=== PATIENT | male | born 1945 | race Asian ===

== ENCOUNTER → 2021-01-24 15:26 | Outpatient (CLI) | payer MEDICARE, SELFPAY ==
[2021-01-14 16:09] VITALS: BMI 21.2
--- NOTE | 2021-01-24 15:29 | CT_ITS ---
STUDY: CT CHEST, ABDOMEN T PELVIS WITH CONTRAST REASON FOR EXAM: Male, 75 years old. HYPERFERRITINEMIA RADIATION DOSAGE (If Supplied By Facility): CTDIvol = ( 25.32 ) mGy, DLP = ( 566.66 ) mGycm TECHNIQUE: Transaxial imaging was performed following intravenous administration of Oral and amp; IV Readi-CAT and amp; 100mL Isovue-300. Individualized dose optimization techniques were used for this CT. COMPARISON: No relevant priors. FINDINGS: CHEST Examination is technically suboptimal due to motion artifact. Interstitium appears indistinct. Diagnostic information is available. Lungs are clear with mild apical pleural parenchymal scarring. Airways are patent. Mediastinal contents are normal. ABDOMEN Examination is mildly technically degraded due to respiratory motion artifact. Bowel wall is indistinct and cannot be reliably evaluated. Diagnostic information is available. The liver is normal. There is no biliary dilation. Gallbladder is normal. Adrenals and pancreas are normal. Spleen is mildly/moderately enlarged. Right kidney contains benign cysts which do not require follow-up imaging. Left kidney contains an intraparenchymal 1.1 cm intermediate density lesion, not completely characterized on a single phase exam. There are no stones or hydronephrosis. There is no intestinal obstruction. Appendix is normal. There is a heterogeneously enhancing nodule at the base of the bladder possibly arising from the prostate gland and extending superiorly. Perivesical space is normal. There are no osseous destructive lesions. There is chronic compressive deformity of L2 with mild anterior wedging. CT/CT Chest, Abd, Pel w/Contrast IMPRESSION: 1. Normal chest. 2. Splenomegaly. 3. Low risk 1.1 cm left renal lesion. Refer to confirmatory ultrasonography for further characterization. Most probable diagnosis is cyst. 4. Base of bladder enhancing nodule, possibly prostate related. Urology referral advised. Electronically Signed: Linda Ramirez MD at 16:56 EDT Tel , Service support ,
== END ==
PROVIDERS: PCP Family Medicine; Referring Provider Internal Medicine Medical Oncology; Visit Provider Internal Medicine Medical Oncology
DX: N40.1 Benign prostatic hyperplasia with lower urinary tract symptoms (principal); R31.9 Hematuria, unspecified; R79.89 Other specified abnormal findings of blood chemistry
CPT/HCPCS: 71260; 74177; 82274; Q9967

== ENCOUNTER → 2022-03-10 | Outpatient (CLI) | payer MEDICARE, SELFPAY ==
[2022-03-10 17:20] LABS: PSA,Total - Annual Screen 1.26 ng/mL (0.00-4.00)
== END | disposition home or self-care (01) ==
LOC: LAB 16:35
PROVIDERS: PCP Family Medicine; Referring Provider Urology; Visit Provider Urology
DX: Z12.5 Encounter for screening for malignant neoplasm of prostate (principal)
CPT/HCPCS: 36415; 84153; G0103

== ENCOUNTER → 2023-04-03 | Outpatient (CLI) | payer MEDICARE, SELFPAY ==
[2023-04-03 08:46] LABS: Absolute Lymphocyte Count 1.59 X10^3/uL (0.83-4.51); Absolute Neutrophil Count 3.3 X10^3/uL (2.0-7.7); Basophil# 0.03 X10^3/uL; Basophil% 0.4 % (0-1); Eosinophil# 1.34 X10^3/uL; Eosinophils% 19.9 % (0-5); Hematocrit 27.1 % (40-54); Hemoglobin 7.8 g/dL (13.0-16.5); Immature Platelet Fraction 5.2 % (1.0-7.9); Lymphocyte # 1.59 X10^3/ul (0.83-4.51); Lymphocyte % 23.6 % (19-41); Mean Corp Hgb Conc 28.8 g/dL (32-36); Mean Corpuscular Hgb 18.4 pg (27.0-32.0); Mean Corpuscular Volume 64.1 fL (80-94); Monocyte# 0.51 X10^3/uL; Monocyte% 7.6 % (0-10); NRBC Flagged by Analyzer 0 % (0-5); Neutrophil # 3.25 X10^3/uL (2.7-7.7); Neutrophil % 48.1 % (47-70); POSITIVE MORPHOLOGY YES; Platelet Count 154 K/mm3 (150-450); RBC Distribution Width CV 25.2 % (11.6-14.6); Red Blood Count 4.23 M/mm3 (4.6-6.2); White Blood Count 6.8 K/mm3 (4.4-11.0)
[2023-04-03 09:16] LABS: Reticulocyte Count 1.82 % (0.5-1.5)
[2023-04-03 09:17] LABS: Differential Indicated SCAN CRITERIA MET; RET-HE 18.2 pg (30-35)
[2023-04-03 09:21] LABS: AST(SGOT) 20 U/L (15-37); Alanine Aminotransfer ALT/SGPT 16 U/L (16-61); Albumin, Serum 3.8 g/dL (3.2-5.0); Alkaline Phosphatase 162 U/L (45-117); Anion Gap 4 (5-15); BUN 18 mg/dL (7-18); BUN/Creat Ratio 11.5 RATIO (10-20); Calcium,Total 9.1 mg/dL (8.5-10.1); Chloride 109 mmol/L (98-107); Creatinine, Serum 1.56 mg/dL (0.70-1.30); EST Glomerular Filtration Rate 46 mL/min (>60); Est Glom Filt Rate - Afr Amer 56 mL/min (>60); Ferritin 1398 ng/mL (26-388); Glucose 98 mg/dL (74-106); Iron 89 ug/dL (65-175); Iron Binding Capacity,Total 220 ug/dL (250-450); LDH 211 U/L (87-241); PERCENT IRON SATURATION 40.5 % (15.0-55.0); Potassium 3.9 mmol/L (3.5-5.1); Protein, Total 7.8 g/dL (6.4-8.2); Sodium Level 138 mmol/L (136-145)
[2023-04-03 09:38] LABS: Anisocytosis 3+; Hypochromasia 2+
[2023-04-03 09:39] LABS: Target Cells 1+; Tear Drop Cell 1+
[2023-04-03 09:40] LABS: Schistocytes 1+
[2023-04-03 16:23] LABS: Xtra Tube EP Lab EXTRA TUBE
[2023-04-05 16:09] LABS: Erythropoietin 32.7 mIU/mL (2.6-18.5)
== END | disposition home or self-care (01) ==
PROVIDERS: PCP Family Medicine; Referring Provider Internal Medicine Hematology & Oncology; Visit Provider Internal Medicine Hematology & Oncology
DX: D64.9 Anemia, unspecified (principal); N18.30 Chronic kidney disease, stage 3 unspecified; R79.89 Other specified abnormal findings of blood chemistry
CPT/HCPCS: 36415; 80053; 82668; 82728; 83540; 83550; 83615; 85025; 85045